=== PATIENT | male | born 1945 | race Caucasian/White ===

== ENCOUNTER 2019-04-16 14:04 | Emergency (ER) | payer OTHER ==
[~2019-04-16] VITALS: Ht 170.2 cm; Wt 63.5 kg
--- NOTE | 2019-04-16 11:56 | NUR ---
PTE REFIERE [facility]ALE[facility] GENERAL DESDE HACE VARIOS CARTER.
--- NOTE | 2019-04-16 13:51 | NUR ---
EVALUADO POR LA SE ORIENTA SOBRE TRATAMIENTO MEDICO Y LA UNIDAD CONECTADO A MONITOR CARDIACO. SE LE EXTRAEN MUESTRAS DE DIANE Y SE ENVIAN AL LABORATORIO. SE LE NOTIFICA A PARA REALIZARLE ABG A PTE Y QUE ESTA UBICADO EN GL[facility] #17. SE MANTIENE EN OBSERVACION. PENDIENTE A REALIZARLE ECHOCARDIOGRAMA.
--- NOTE | 2019-04-16 16:30 | NUR ---
PACIENTE MASCULINO ALERTA Y ORIENTADO EL MISMO REFIERE REHUZAR AL TRATAMIENTO, SE RE ORIENTA SOBRE EL TRATAMIENTO Y EL MISMO VUELVE A REHUZAR EL TRATAMIENTO. SE REMUEVE AREA DE VENOPUNCION CRISTIAN DE EDEMA Y ERITEMA. SE RETIRA DE LA KIMO DE EMERGENCIA AMBULANDO.
--- NOTE | 2019-04-16 22:32 | NUR ---
PACIENTE MASCULINO ALERTA Y ORIENTADO EL MISMO REFIERE REHUZAR A TRATAMIENTO SE RE ORIENTA SOBRE LA IMPORTANCIA DEL MISMO Y EL MISMO REFIERE REHUZAR AL TRATAMIENTO. SE REMUEVE AREA DE FANNY
== END 2019-04-16 16:26 | disposition left against medical advice (07) ==
LOC: ER 14:04 → SEC-K 15:45 → ER 15:45 → SEC-K 22:48 → EDSTATUS 04-28 08:56
DX: I11.9 Hypertensive heart disease without heart failure (principal); I48.0 Paroxysmal atrial fibrillation